=== PATIENT | male | born 1970 | race American Indian/Alaskan Native ===

== ENCOUNTER 2019-02-09 08:32 | Emergency (ER) | payer OTHER ==
--- NOTE | 2019-02-09 10:02 | Emergency Department Report ---
ED Medical Clearance HPI - General Chief complaint: Medical Clearance Stated complaint: MEDICATION REFILL Time Seen by Provider: 02/09/19 09:56 Source: patient Mode of arrival: Ambulatory - History of Present Illness Initial comments: Mr. Chamberlain is a 48 yo male with hx of schizophrenia and bipolar disorder. He requested medication refill of zoloft and olanzapine. Moved from [place], [place]. No other concerns. NO SI/HI. MD Complaint: other (medication refill) Home medications: Previous Rx's Medication Instructions Recorded Last Taken Type OLANzapine [Zyprexa] 10 mg PO QHS 30 Days #30 tablet 02/09/19 Unknown Rx Sertraline [Zoloft] 75 mg PO QDAY #30 tablet 02/09/19 Unknown Rx Allergies/Adverse reactions: Allergies Allergy/AdvReac Type Severity Reaction Status Date / Time No Known Allergies Allergy Unverified 02/09/19 08:37 ED Review of Systems ROS: Stated complaint: MEDICATION REFILL Other details as noted in HPI Constitutional: denies: fever, malaise Psychiatric: denies: anxiety, depression, auditory hallucinations, visual hallucinations, homicidal thoughts, suicidal thoughts ED Past Medical Hx - Past Medical History Previous Medical History?: Yes Hx Heart Attack/AMI: Yes Hx Psychiatric Treatment: Yes (schizophrenia, bipolar) - Medications Home Medications: Home Medications Medication Instructions Recorded Confirmed Last Taken Type OLANzapine [Zyprexa] 10 mg PO QHS 30 Days #30 tablet 02/09/19 Unknown Rx Sertraline [Zoloft] 75 mg PO QDAY #30 tablet 02/09/19 Unknown Rx ED Physical Exam - General Limitations: No Limitations General appearance: alert, in no apparent distress - Head Head exam: Present: atraumatic, normocephalic - Neck Neck exam: Present: normal inspection, full ROM - GI/Abdominal GI/Abdominal exam: Present: soft. Absent: distended, tenderness, guarding, rebound - Extremities Exam Extremities exam: Present: normal inspection, tenderness - Neurological Exam Neurological exam: Present: alert, oriented X3 - Psychiatric Psychiatric exam: Present: normal affect, normal mood. Absent: anxious, flat affect, manic, homicidal ideation, suicidal ideation ED Medical Decision Making - Medical Decision Making Mr. Chamberlain presents for medication refill. No emergent symptoms such as psychosis, SI HI which need to be addressed I have prescribed his home doses of olazapine and sertraline. He has missed his medications for 5 days. Referred to [facility]. ED Disposition Clinical Impression: Bipolar disorder, Schizophrenia Disposition: DC TO HOME OR SELFCARE Is pt being admited?: No Does the pt Need Aspirin: No Condition: Stable Prescriptions: OLANzapine [Zyprexa] 10 mg PO QHS 30 Days #30 tablet Sertraline [Zoloft] 75 mg PO QDAY #30 tablet Referrals: PRIMARY CARE, [Primary Care Provider] - 3-5 Days
[2019-02-09 10:19] VITALS: BP 107/59
== END 2019-02-09 10:19 | disposition home or self-care (01) ==
LOC: ED 08:32
DX: F31.9 Bipolar disorder, unspecified (principal); F20.9 Schizophrenia, unspecified; Z76.0 Encounter for issue of repeat prescription
CPT/HCPCS: 99282